=== PATIENT | male | born 2000 ===

== ENCOUNTER 2021-02-15 13:40 | Emergency (ER) | payer OTHER ==
[~2021-02-15] VITALS: Ht 170.2 cm; Wt 52.2 kg
== END 2021-02-15 16:21 | disposition home or self-care (01) ==
LOC: EMR PED 13:40 → ER 13:40 → EMR PED 15:18
DX: D72.828 Other elevated white blood cell count (principal); J98.8 Other specified respiratory disorders; Z11.52 Encounter for screening for COVID-19

== ENCOUNTER 2022-10-22 09:36 | Emergency (ER) | payer OTHER ==
[~2022-10-22] VITALS: Ht 172.7 cm; Wt 53.5 kg
[2022-10-22] MEDS ORDERED: MUPIROCIN22 GM TOP (11:25)
[2022-10-22] MEDS ORDERED: TYLENOL325 MG PO (11:30)
[2022-10-22] MEDS ORDERED: TYLENOL325 MG (11:31)
== END 2022-10-22 13:06 | disposition home or self-care (01) ==
LOC: ER 09:36
DX: N48.89 Other specified disorders of penis (principal); Z88.8 Allergy status to other drugs, medicaments and biological substances